=== PATIENT | female | born 1940 | race Two or more races ===

== ENCOUNTER 2024-09-14 13:54 | Emergency (ER) | payer MEDICARE, OTHER ==
[~2024-09-14] VITALS: Ht 167.6 cm; Wt 67.1 kg
[2024-09-14 18:35] VITALS: BP 135/88; TEMP 98.2; O2SAT 97
== END 2024-09-14 18:35 | disposition home or self-care (01) ==
LOC: ER 14:21
DX: S09.8XXA Other specified injuries of head, initial encounter (principal); G20.A1 Parkinson's disease without dyskinesia, without mention of fluctuations; R51.9 Headache, unspecified; W06.XXXA Fall from bed, initial encounter; Y93.89 Activity, other specified; Y92.89 Other specified places as the place of occurrence of the external cause; Y99.8 Other external cause status
CPT/HCPCS: 70450-TC; 71045-TC; 72125-TC; 72170-TC